=== PATIENT | female | born 1970 | race Caucasian/White ===

== ENCOUNTER 2024-05-05 14:53 | Emergency (ER) | payer OTHER, SELFPAY ==
[2024-05-05 15:02] VITALS: PULSE 102; O2SAT 98
[2024-05-05 15:03] VITALS: BP 111/67; PULSE 112; RESP 18; TEMP 36.8; O2SAT 98
[2024-05-05 15:10] VITALS: BP 111/67; PULSE 112; RESP 18; TEMP 36.8; O2SAT 98; BMI 20.7
[2024-05-05 15:34] LABS: Glucose, Whole Blood 295 mg/dL (60-115)
--- NOTE | 2024-05-05 15:42 | ED_ITS ---
HPI - General Adult General Chief complaint: Psychiatric Symptoms Stated complaint: DKA Time Seen by Provider: 05/05/24 15:23 Source: patient Mode of arrival: ambulatory Limitations: no limitations History of Present Illness ED Provider: Dr. Vale Victoria HPI narrative: Patient comes to the emergency room via ambulance from [facility]. According to Lana Laughlin, patient was acting strange and her blood sugar was 330 therefore they sent her to the emergency room for further evaluation. According to the staff, patient is not compliant with her medications. Patient denies taking any medications for her glucose. Patient states that she is aware that they are elevated but likes to keep it between 300-400. Patient denies blurry vision, no headaches, no polyuria or polydipsia. Related Data Home Medications ?Medication ?Instructions ?Recorded ?Confirmed No Known Home Meds 05/05/24 05/05/24 Allergies Allergy/AdvReac Type Severity Reaction Status Date / Time oxycodone Allergy Unknown Verified 05/05/24 18:21 quetiapine [From Seroquel] Allergy Unknown Verified 05/05/24 18:21 risperidone Allergy Unknown Verified 05/05/24 18:21 insulin Allergy Unknown Uncoded 05/05/24 18:21 Review of Systems 2 Review of Systems: Constitutional : No Weight loss, No Fever, No Chills, No Night Sweats, No Fatigue, No Malaise ENT/Mouth : No Hearing loss, No Ear Pain, No Nasal Congestion, No Sinus Pain, No Hoarseness, No sore throat, No Rhinorrhea, No Swallowing Difficulty Eyes: No Eye Pain, No Swelling, No Redness, No Foreign Body, No Discharge, No Vision Changes Cardiovascular : No Chest Pain, No SOB, No Dyspnea on Exertion, No Orthopnea, No Edema, No Palpitations Respiratory : No Cough, No Sputum, No Wheezing, No Smoke Exposure, No Dyspnea Gastrointestinal : No Nausea, No Vomiting, No Diarrhea, No Constipation, No abdominal Pain, No Hematochezia, No Melena Genitourinary : no irregular bleeding, No Dysuria, No Urinary Frequency, No Hematuria, No Urinary Incontinence, No Urgency, No Flank Pain, No Urinary Flow Changes, No Hesitancy Musculoskeletal : No joint pain, No Myalgias, No Joint Swelling Skin : No Skin Lesions, No rash Neuro : No Weakness, No Numbness, No Paresthesias, No Loss of Consciousness, No Dizziness, No Headache Psych : No Anxiety/Panic, No Depression, No SI/HI/AH/VH, No Social Issues, Heme/Lymph: No Bruising, No Bleeding,No Lymphadenopathy Endocrine : No Polyuria, No Polydipsia, No Temperature Intolerance [facility] Past Medical History Medical History (Updated 05/05/24 @ 20:00 by Vale Victoria MD) Schizoaffective disorder Type 2 diabetes mellitus Social History Social History Smoked in Last 30 Days: No Use of substances other than those prescribed or required for medical reasons: No Advance Directives: No Advance Directives Information Provided: No Physical Exam ED Vital Signs: Vital Signs - 24 hr 05/05/24 15:03 05/05/24 15:10 05/05/24 18:00 Temperature 98.3 F 98.3 F 98.1 F Pulse Rate 112 H 112 H 112 H Respiratory Rate 18 18 16 Blood Pressure 111/67 111/67 137/85 Pulse Oximetry 98 98 98 Oxygen Delivery Method Room Air Room Air Room Air BMI result Body Mass Index 20.7 Const Other: Appearance: Alert. Oriented X3. No acute distress. Eyes: Pupils equal, round and reactive to light. ENT: Pharynx normal. Neck: Normal inspection. Neck supple. No lymph nodes noted. No crepitus CVS: Normal heart rate and rhythm. Pulses normal. Normal S1 and S2 Respiratory: No respiratory distress. Breath sounds normal. No Wheezing. No rales Abdomen: Soft and nontender. No rigidity. No distention. Skin: Skin warm and dry. Normal skin color. Normal skin turgor. Extremities: No lower extremity edema. No Lacerations. No Rash Neuro: Oriented X 3. No motor deficit. No sensory deficit. Moving all extremities. No slurred speech. CN 2 through 12 grossly intact Psych: calm, cooperative, preoccupied with yazidism beliefs. Course Course Course Narrative: -patient's labs pending. Medications Administered Discontinued Medications Generic Name Dose Route Start Last Admin Trade Name Freq PRN Reason Stop Dose Admin Sodium Chloride 1,000 mls @ 999 mls/hr 05/05/24 17:31 05/05/24 19:38 Ns IVCONT 05/05/24 18:31 Infused .Q1H1M ONE Infusion Insulin Human Regular 5 unit 05/05/24 17:31 05/05/24 18:02 Insulin Regular, Human 100 Unit/Ml 10 Ml Vial IVPUSH 05/05/24 17:32 5 unit ONCE ONE Administration My interpretation of labs, normal hematology, chemistry shows a glucose of 338. Beta hydroxybutyrate 0.9 Medical Decision Making Medical Decision Making [facility] Narrative: My interpretation of labs: Patient's hematology and chemistry within normal limits, glucose 338. -patient was giving IV fluids, 5 units of insulin, patient's glucose improved to 104, patient asymptomatic. -on April 14, patient was prescribed Januvia 100 mg, metformin 1000 mg b.i.d. and glimepiride 4 mg, to be continued as prescribed Differential Diagnosis Differential Diagnoses: The differential diagnosis associated with the presentation includes (Hyperglycemia, medication noncompliance) Lab Data [facility] Lab Attestation statement: I reviewed the patient's lab results. 05/05/24 15:52 05/05/24 15:52 Labs: Lab Results 05/05/24 05/05/24 05/05/24 Range/Units 15:05 15:52 17:18 WBC 7.8 (4.8-10.8) X10*3/uL RBC 5.26 (4.20-5.50) X10*6/uL Hgb 15.1 (12.0-16.0) g/dl Hct 41.9 (37.0-47.0) % MCV 79.7 L (80.0-98.0) fL MCH 28.7 (27.0-33.0) pg MCHC 36.0 H (31.0-35.0) g/dl RDW 12.2 (11.0-16.0) % Plt Count 257 (160-400) X10*3/uL MPV 11.2 (9.4-12.3) fL Immature Gran % (Auto) 0.3 (0.0-0.4) % Neut % (Auto) 63.2 (45-73) % Lymph % (Auto) 30.2 (20-40) % [place] % (Auto) 5.4 (2-11) % Eos % (Auto) 0.5 (0-4) % Baso % (Auto) 0.4 (0-2) % Lymph # (Auto) 2.4 (1.2-4.9) X10*3/uL [place] # (Auto) 0.4 (0.1-1.2) X10*3/uL Eos # (Auto) 0.0 (0.0-0.4) X10*3/uL Baso # (Auto) 0.0 (0.0-0.2) X10*3/uL Abs Immat Gran (auto) 0.02 (0.00-0.03) X10*3/uL Absolute Neuts (auto) 4.9 (2.0-8.3) x10*3/uL Absolute Nucleated RBC 0.000 (0.0-0.012) X10*3/uL Nucleated RBC % (auto) 0.0 (0.0-0.2) /100WBC Sodium 139 (135-145) mmol/L Potassium 4.1 (3.3-5.1) mmol/L Chloride 103 (96-108) mmol/L Carbon Dioxide 25 (22-29) mmol/L Anion Gap 15 (12-20) BUN 11 (9-16) mg/dL Creatinine 0.94 (0.5-1.4) mg/dL Estim Creat Clear Calc 68.5 Estimated GFR > 60 POC Glucose 295 H 300 H (60-115) mg/dL Random Glucose 338 H (60-115) mg/dL Calcium 9.8 (8.4-10.2) mg/dL Total Bilirubin 0.6 (0.0-1.0) mg/dL Direct Bilirubin 0.2 (0.0-0.5) mg/dL AST 15 (5-31) U/L ALT 17 (0-31) U/L Alkaline Phosphatase 64 (39-117) U/L Total Protein 7.0 (6.5-8.0) g/dL Albumin 3.9 (3.5-5.0) g/dL Beta-Hydroxybutyrate 0.90 H (0.02-0.27) mmol/L 05/05/24 Range/Units 19:36 WBC (4.8-10.8) X10*3/uL RBC (4.20-5.50) X10*6/uL Hgb (12.0-16.0) g/dl Hct (37.0-47.0) % MCV (80.0-98.0) fL MCH (27.0-33.0) pg MCHC (31.0-35.0) g/dl RDW (11.0-16.0) % Plt Count (160-400) X10*3/uL MPV (9.4-12.3) fL Immature Gran % (Auto) (0.0-0.4) % Neut % (Auto) (45-73) % Lymph % (Auto) (20-40) % [place] % (Auto) (2-11) % Eos % (Auto) (0-4) % Baso % (Auto) (0-2) % Lymph # (Auto) (1.2-4.9) X10*3/uL [place] # (Auto) (0.1-1.2) X10*3/uL Eos # (Auto) (0.0-0.4) X10*3/uL Baso # (Auto) (0.0-0.2) X10*3/uL Abs Immat Gran (auto) (0.00-0.03) X10*3/uL Absolute Neuts (auto) (2.0-8.3) x10*3/uL Absolute Nucleated RBC (0.0-0.012) X10*3/uL Nucleated RBC % (auto) (0.0-0.2) /100WBC Sodium (135-145) mmol/L Potassium (3.3-5.1) mmol/L Chloride (96-108) mmol/L Carbon Dioxide (22-29) mmol/L Anion Gap (12-20) BUN (9-16) mg/dL Creatinine (0.5-1.4) mg/dL Estim Creat Clear Calc Estimated GFR POC Glucose 104 (60-115) mg/dL Random Glucose (60-115) mg/dL Calcium (8.4-10.2) mg/dL Total Bilirubin (0.0-1.0) mg/dL Direct Bilirubin (0.0-0.5) mg/dL AST (5-31) U/L ALT (0-31) U/L Alkaline Phosphatase (39-117) U/L Total Protein (6.5-8.0) g/dL Albumin (3.5-5.0) g/dL Beta-Hydroxybutyrate (0.02-0.27) mmol/L Critical Care Time Critical Care Time Critical Care Time: Yes Total Critical Care Time: 60 Attestation: I have personally provided critical care time. Time includes review of lab data, radiology results, discussion with consultants, and monitoring for potential decompensation. Intervention performed as documented. Discharge Plan Discharge Clinical Impression: Hyperglycemia Patient Disposition: Xfer Other Transfer Details: [facility] [place] Prescriptions: No Action No Known Home Meds Print Language: Lao
[2024-05-05 15:57] LABS: Basophils Percent Auto 0.4 % (0-2); Eosinophils Percent Auto 0.5 % (0-4); Hematocrit 41.9 % (37.0-47.0); Hemoglobin 15.1 g/dl (12.0-16.0); Imm Gran Abs Auto 0.02 X10*3/uL (0.00-0.03); Imm Gran Pct Auto 0.3 % (0.0-0.4); Lymphocytes Absolute Auto 2.4 X10*3/uL (1.2-4.9); Lymphocytes Percent Auto 30.2 % (20-40); MANUAL DIFF FLAG NO; Mean Corpuscular Hemoglobin 28.7 pg (27.0-33.0); Mean Corpuscular Volume 79.7 fL (80.0-98.0); Mean Platelet Volume 11.2 fL (9.4-12.3); Monocytes Absolute Auto 0.4 X10*3/uL (0.1-1.2); Monocytes Percent Auto 5.4 % (2-11); Neutrophils Absolute Auto 4.9 x10*3/uL (2.0-8.3); Neutrophils Percent Auto 63.2 % (45-73); Platelet Count 257 X10*3/uL (160-400); Red Blood Count 5.26 X10*6/uL (4.20-5.50); Red Cell Distribution Width 12.2 % (11.0-16.0); White Blood Count 7.8 X10*3/uL (4.8-10.8)
--- NOTE | 2024-05-05 15:57 | PC.NURSE ---
Pt comes to ED today from [facility] for concerns of AMS and hyperglycemia. Pt is A&Ox3, VSS, and hyper-verbal Denies pain, n/v, EASON Pt states she her usual BS are between 300-400 at baseline. 1:1 sitter present. ED provider at bedside for eval--awaiting orders.
[2024-05-05 16:19] LABS: Alanine Aminotransferase 17 U/L (0-31); Albumin Level 3.9 g/dL (3.5-5.0); Anion Gap 15 (12-20); Aspartate Amino Transferase 15 U/L (5-31); Bilirubin Direct 0.2 mg/dL (0.0-0.5); Bilirubin Total 0.6 mg/dL (0.0-1.0); Blood Urea Nitrogen 11 mg/dL (9-16); Calcium 9.8 mg/dL (8.4-10.2); Carbon Dioxide 25 mmol/L (22-29); Chloride 103 mmol/L (96-108); Creatinine Clr Calc Pharmacy 68.5; Estimated Glomerular Filt Rate > 60; Glucose Random 338 mg/dL (60-115); Potassium 4.1 mmol/L (3.3-5.1); Sodium 139 mmol/L (135-145)
[2024-05-05 16:30] LABS: Alkaline Phosphatase 64 U/L (39-117)
[2024-05-05 17:23] LABS: Glucose, Whole Blood 300 mg/dL (60-115)
[2024-05-05] MEDS: 0.9 % Sodium Chloride 1,000 ML 999 ML IVCONT (17:55)
[2024-05-05 18:00] VITALS: BP 137/85; PULSE 112; RESP 16; TEMP 36.7; O2SAT 98
[2024-05-05] MEDS: Insulin Regular, Human 100 UNIT/ML 10 ML VIAL IVPUSH (18:02)
--- NOTE | 2024-05-05 18:05 | PC.NURSE ---
Pts BS noted to be elevated at 300. Dr. Victoria orders IVF and IV insulin. When discussing findings with Pt, she initially refuses care and demands food/milk. Pt advised that this would be contraindicated gien her BS level and that IVF and insulin are required to regulate BS. Pt continues to refuse care. Dr. Victoria made aware and plan for D/C due to refusal. When Pt informed that since she is refusing care she will be discharged she becomes agitates and accuses this RN of threatening her physically. This RN made it clear that notifying her of d/c is not a physical threat and that she cannot remain in the ER if she is not going to receive any treatment. Pt then states she will agree to treatment under duress. It was explained to Pt that she can refuse treatment and when asked if she would like IVF and insulin she states yes and when asked if she is going to cooperate she states yes. This RN later return to Pt room for IV pro Security present in room for IV catheter placement. During this procedure, Pt continuously describes this RN to the security staff as threatening and states that this RN enjoys inflicting pain upon others. Pt willingly offers RAC for IV access and does not object in any manner to procedure. As this RN inserted IV needle Pt shouts and jerks her RUE. IV needle remains inserted and Pt was reminded to stay still. Pt then states to this RN, go ahead you already hurt me. Pt is complaint with remainder of IV placement. Pt verbally acknowledges and agrees to the start of IVF JOE Yin present for IV insulin administration. This RN verbally explains dosage and type of insulin to Pt and Pt gives verbal acknowledgement and agreement to medication admiration. IV insulin administered without incident. Of note, mohsen Watson present for this entire encounter. Plan to recheck POC after IVF are administered. Per Dr. Victoria will d/c if regulated.
--- NOTE | 2024-05-05 19:03 | PC.NURSE ---
RN shift report given to JOE Villarreal. Care of Pt relinquished to JOE Villarreal.
[2024-05-05 19:40] LABS: Glucose, Whole Blood 104 mg/dL (60-115)
--- NOTE | 2024-05-05 20:09 | PC.NURSE ---
MD aware of POC. per MD pt to be d/c. ed corporation secretary aware of need for ems transfer to facility. pt requests food, given per ok. sitter at bedside.
[2024-05-05 20:38] VITALS: BP 131/85; PULSE 108; RESP 16; TEMP 36.9; O2SAT 98
[2024-05-05 20:52] VITALS: BP 131/85; PULSE 108; RESP 16; TEMP 36.9; O2SAT 98
== END 2024-05-05 20:59 | disposition other institution (70) ==
PROVIDERS: Emergency Provider Emergency Medicine
DX: E11.65 Type 2 diabetes mellitus with hyperglycemia (principal); Z79.4 Long term (current) use of insulin
CPT/HCPCS: 36415; 80048; 80076; 82010; 82947; 85025; 96361; 96374; 99285

== ENCOUNTER 2024-05-15 18:16 | Emergency (ER) | payer OTHER, SELFPAY ==
--- NOTE | 2024-05-15 | ECG_ITS ---
Test Reason : NAUSEA/VOMITING Blood Pressure : / mmHG Vent. Rate : 080 BPM Atrial Rate : 080 BPM P-R Int : 132 ms QRS Dur : 086 ms QT Int : 342 ms P-R-T Axes : 061 061 052 degrees QTc Int : 394 ms Normal sinus rhythm Minimal voltage criteria for LVH, may be normal variant ( Sokolow-Frias ) Borderline ECG No previous ECGs available Referred By: Generic ED Physician Electronically Signed By:Rinku Tyson
--- NOTE | ~2024-05-15 | XR_ITS ---
EXAMINATION: XR CHEST CLINICAL INFORMATION: sob COMPARISON: None available. TECHNIQUE: Frontal view of the chest was obtained. FINDINGS: No significant abnormality is noted involving the heart, lungs, mediastinum, bony thorax or soft tissues. XR/XR chest 1V IMPRESSION: Unremarkable examination. Electronically signed by: Jorge Crow MD 05/15/2024 07:55 PM [facility]
[2024-05-15 18:24] VITALS: BP 106/72; BP 130/78; PULSE 105; PULSE 112; RESP 20; TEMP 36.5; O2SAT 97; BMI 20.8
[2024-05-15 19:24] VITALS: BP 195/84; PULSE 95; RESP 18; TEMP 36.8; O2SAT 99
--- NOTE | 2024-05-15 19:39 | PC.NURSE ---
this rn assumed care of pt, pt reporting increased nausea and vomiting. pt noted to be from [facility] on a [facility]. pt noted to not have sitter in place, supercharger mechanic aware, sitter placed on pt at this time.
[2024-05-15 20:37] LABS: Basophils Percent Auto 0.5 % (0-2); Eosinophils Absolute Auto 0.1 X10*3/uL (0.0-0.4); Eosinophils Percent Auto 1.8 % (0-4); Hemoglobin 13.6 g/dl (12.0-16.0); Imm Gran Abs Auto 0.01 X10*3/uL (0.00-0.03); Imm Gran Pct Auto 0.2 % (0.0-0.4); Lymphocytes Absolute Auto 2.6 X10*3/uL (1.2-4.9); Lymphocytes Percent Auto 39.6 % (20-40); MANUAL DIFF FLAG NO; Mean Corpuscular HGB Conc 35.8 g/dl (31.0-35.0); Mean Platelet Volume 11.3 fL (9.4-12.3); Monocytes Absolute Auto 0.4 X10*3/uL (0.1-1.2); Monocytes Percent Auto 6.5 % (2-11); Neutrophils Absolute Auto 3.4 x10*3/uL (2.0-8.3); Neutrophils Percent Auto 51.4 % (45-73); Platelet Count 240 X10*3/uL (160-400); Red Blood Count 4.69 X10*6/uL (4.20-5.50); Red Cell Distribution Width 12.3 % (11.0-16.0); White Blood Count 6.7 X10*3/uL (4.8-10.8)
[2024-05-15 20:52] LABS: Alanine Aminotransferase 20 U/L (0-31); Albumin Level 3.9 g/dL (3.5-5.0); Alkaline Phosphatase 46 U/L (39-117); Anion Gap 13 (12-20); Aspartate Amino Transferase 17 U/L (5-31); Bilirubin Total 0.2 mg/dL (0.0-1.0); Blood Urea Nitrogen 18 mg/dL (9-16); Calcium 9.8 mg/dL (8.4-10.2); Carbon Dioxide 29 mmol/L (22-29); Chloride 103 mmol/L (96-108); Estimated Glomerular Filt Rate > 60; Glucose Random 164 mg/dL (60-115); Lipase 25 U/L (8-78); Potassium 4.2 mmol/L (3.3-5.1); Sodium 141 mmol/L (135-145)
--- NOTE | 2024-05-15 21:27 | ED_ITS ---
HPI - URI/Sore Throat General Chief Complaint: Upper Respiratory Symptoms Stated Complaint: Cough coming from [facility] Time Seen by Provider: 05/15/24 21:18 Source: patient Mode of arrival: ambulatory Limitations: no limitations History of Present Illness ED Provider: HPI Narrative: Patient from [facility] with history of schizoaffective disorder comes here for nonspecific complaints feeling weak cough for last 2 years with multiple complaints patient is diabetic Related Data Home Medications ?Medication ?Instructions ?Recorded ?Confirmed No Known Home Meds 05/05/24 05/05/24 Allergies Allergy/AdvReac Type Severity Reaction Status Date / Time oxycodone Allergy Unknown Verified 05/15/24 18:28 quetiapine [From Seroquel] Allergy Unknown Verified 05/15/24 18:28 risperidone Allergy Unknown Verified 05/15/24 18:28 Review of Systems 2 Review of Systems: Yes all other systems are reviewed and are negative PMFSH Past Medical History Medical History Schizoaffective disorder Type 2 diabetes mellitus Social History Social History Advance Directives: Yes Advance Directives Information Provided: No Advance Directives on File: No Do you have a plan to hurt others: No Plan Physical Exam 2 Vital Signs: Vital Signs: Last Vital Signs Temp 98.2 F 05/15/24 19:24 Pulse 95 05/15/24 19:24 Resp 18 05/15/24 19:24 BP 195/84 H 05/15/24 19:24 Pulse Ox 99 05/15/24 19:24 O2 Del Method Room Air 05/15/24 19:24 BMI result Body Mass Index 20.8 Appearance: Alert. Oriented X3. No acute distress. Eyes: PERRLA, No Nystagmus ENT: Pharynx normal. Oral Mucosa moist Neck: Normal inspection. Neck supple. CVS: Normal heart rate and rhythm. Pulses normal. Respiratory: No respiratory distress. Equal air entry bilateral, no wheezing/rales/rhonchi Abdomen: Soft and nontender. Bowel sounds are present, no mass palpable, no CVA tenderness Skin: Skin warm and dry. Normal skin color. Normal skin turgor. Extremities: No lower extremity edema. No calf tenderness Neuro: Oriented X 3. No motor deficit. No sensory deficit.No cerebellar signs , cranial nerves II-XII intact Medical Decision Making Medical Decision Making [facility] Narrative: Patient with nonspecific complaints workup is negative will send back to [facility] Lab Data [facility] Lab Attestation statement: I reviewed the patient's lab results. 05/15/24 20:32 05/15/24 20:32 Labs: Lab Results 05/15/24 Range/Units 20:32 WBC 6.7 (4.8-10.8) X10*3/uL RBC 4.69 (4.20-5.50) X10*6/uL Hgb 13.6 (12.0-16.0) g/dl Hct 38.0 (37.0-47.0) % MCV 81.0 (80.0-98.0) fL MCH 29.0 (27.0-33.0) pg MCHC 35.8 H (31.0-35.0) g/dl RDW 12.3 (11.0-16.0) % Plt Count 240 (160-400) X10*3/uL MPV 11.3 (9.4-12.3) fL Immature Gran % (Auto) 0.2 (0.0-0.4) % Neut % (Auto) 51.4 (45-73) % Lymph % (Auto) 39.6 (20-40) % [place] % (Auto) 6.5 (2-11) % Eos % (Auto) 1.8 (0-4) % Baso % (Auto) 0.5 (0-2) % Lymph # (Auto) 2.6 (1.2-4.9) X10*3/uL [place] # (Auto) 0.4 (0.1-1.2) X10*3/uL Eos # (Auto) 0.1 (0.0-0.4) X10*3/uL Baso # (Auto) 0.0 (0.0-0.2) X10*3/uL Abs Immat Gran (auto) 0.01 (0.00-0.03) X10*3/uL Absolute Neuts (auto) 3.4 (2.0-8.3) x10*3/uL Absolute Nucleated RBC 0.000 (0.0-0.012) X10*3/uL Nucleated RBC % (auto) 0.0 (0.0-0.2) /100WBC Sodium 141 (135-145) mmol/L Potassium 4.2 (3.3-5.1) mmol/L Chloride 103 (96-108) mmol/L Carbon Dioxide 29 (22-29) mmol/L Anion Gap 13 (12-20) BUN 18 H (9-16) mg/dL Creatinine 0.83 (0.5-1.4) mg/dL Estim Creat Clear Calc 76.0 Estimated GFR > 60 Random Glucose 164 H (60-115) mg/dL Calcium 9.8 (8.4-10.2) mg/dL Total Bilirubin 0.2 (0.0-1.0) mg/dL AST 17 (5-31) U/L ALT 20 (0-31) U/L Alkaline Phosphatase 46 (39-117) U/L Total Protein 7.0 (6.5-8.0) g/dL Albumin 3.9 (3.5-5.0) g/dL Lipase 25 (8-78) U/L Influenza Type A (PCR) NEGATIVE (Negative) Influenza Type B (PCR) NEGATIVE (Negative) RSV RNA Qual (PCR) NEGATIVE (Negative) SARS-CoV-2 RNA (RT-PCR) NEGATIVE (Negative) Independent Interpretation I performed an independent interpretation of an: Plain X-Ray Interpretation: NAD Radiology Impression Discussion of test interpretation with radiology: I have reviewed the radiologist's reading. Discharge Plan Discharge Clinical Impression: Upper respiratory infection Patient Disposition: Home, Self-Care Instructions: Upper Respiratory Infection (ED) Additional Instructions: Your blood workup was normal Your COVID flu RSV negative Chest x-ray also negative Follow with your PCP if any concerns Prescriptions: No Action No Known Home Meds Print Language: Chinese
[2024-05-15 21:46] LABS: Influenza A PCR NEGATIVE (Negative); Influenza B PCR NEGATIVE (Negative); Resp Syncy Virus RNA Qual PCR NEGATIVE (Negative); SARS COV2 PCR INHOUSE NEGATIVE (Negative)
--- NOTE | 2024-05-15 21:58 | PC.NURSE ---
pt appears to be sleeping, pt denies any complaints at this time, no nausea and vomiting noted. 1:1 sitter at bedside.
--- NOTE | 2024-05-15 22:37 | PC.NURSE ---
report given to Colette DIAZ at [facility].
--- NOTE | 2024-05-15 23:25 | PC.NURSE ---
EMS at bedside to transport pt back to [facility] at this time. security at bedside.
[2024-05-15 23:30] VITALS: BP 195/84; PULSE 95; RESP 18; TEMP 36.8; O2SAT 99
--- OUTSIDE RECORDS SUMMARY | 2024-05-19 11:53 | XMS_ITS | Data Portability ---
Author Organization [facility], svmg_admin Address [address] [place] [phone] Care Team Providers Care Piece Meat Trimmer Name Role Phone FAUSTO BLAKE Senior Quality Assurance Analyst [phone] FRANK ORO Primary Care Provider Assessment No assessment recorded. Plan of Treatment Reminders Order Date Submit Date Provider Last Modified By Organization Details Last Modified Time Details Appointments None recorded . Lab glucose, fingerst ick, blood 2020 021 [facility] Physician [facility], [address] [place] [address], [id number], 14:57:11 hemoglob in A1C, fingerst ick 2020 021 [facility], [address] [place] [address], [address], 08:05:45 glucose, fingerst ick, blood 2020 021 [facility], [address] [place] [address], [id number], 11:04:03 Referral None recorded . Procedures None recorded . Surgeries None recorded . Imaging None recorded . Medication Orders None recorded . Patient TargetsNo targets recorded. Patient Instructions Encounter Date Encounter Id Patient Instructions Last Modified By Organization Details Last Modified Time 12/27/2020 [id number] type 2 diabetes: care instructions twyla Not available 12/27/2020 14:24:07 01/29/2021 [id number] type 2 diabetes: care instructions [email or web address] Not available 01/29/2021 14:57:11 learning about type 2 diabetes [email or web address] Not available 01/29/2021 14:57:11 04/05/2021 [id number] type 2 diabetes: care instructions [email or web address] Not available 04/05/2021 16:28:16 learning about type 2 diabetes [email or web address] Not available 04/05/2021 16:28:15 Reason for Referral None Reported. Results Created Date Observation Date Name Description Value Unit Range Abnormal Flag Note LastModifiedBy Organization Detail LastModifiedTime 01/30/20 21 01/29/2021 gluco se, finge rstic k, blood Glucose, Fingerstick 274 Not Available [address], [address], 01/29/2021 13:37:57 04/11/20 21 04/11/2021 hemog lobin A1C, finge rstic k Hemoglobin A1c 10.5% Not Available [address], [address], 04/05/2021 13:19:36 Result Notes None recorded. Problems Name Problem SNOMED Code Status Onset Date Resolution Date Notes Provider Name and Address Organization Details Recorded Time Chest pain 83321434 Active Not Available [facility] 05/08/2013 03:02:21 Problem Notes None recorded. Procedures Surgical History Date Name Laterality Status Provider Name and Address Organization Details Recorded Time Tooth root removal completed Alfred Carolina [facility] 12/27/2020 13:01:58 Other Surgeries completed Di Ordonez [facility] 04/05/2021 13:18:13 Imaging Results None recorded. Procedure Notes None recorded. Medical Equipment None Reported. Allergies Allergen ID Allergen Name Allergen Category Reaction Reaction Severity Criticality Documentation Date Start Date Code Code System Note Provider Name and Address Organization Details Recorded Time [id number] oxycodone medicatio n Not available Not available Not available 12/27/2020 7804 RxNorm Di Ordonez [facility] 13:17:37 283146 Seroquel medicatio n other severe Not available 12/27/2020 72764 [facility] 12:59:20 135439 cigarette smoke environme nt Not available Not available Not available 04/05/2021 Di augustine [facility] 13:17:37 [id number] Levemir medicatio n Not available Not available Not available 04/05/2021 46462 0 [facility] 13:23:49 Medications Name Sig Start Date Stop Date Status Note LastModified by Organization Details LastModified Time multivitamin tablet active Not Available Not Available Not Available divalproex 250 mg tablet,delay ed release active Not Available Not Available N ot Available FreeStyle Lancets 28 gauge active Not Available Not Available Not Available amoxicillin 500 mg tablet 04/05 completed Not Available Not Available Not Available glimepiride 2 mg tablet Take 1 tablet every day by oral route. active Not Available Not Available No t Available metformin 1,000 mg tablet active Not Available Not Available Not Available glimepiride 4 mg tablet 04/05 completed Not Available Not Available Not Available divalproex 125 mg tablet,delay ed release active Not Available Not Available N ot Available ibuprofen 600 mg tablet 04/05 completed Not Available Not Available Not Available diazepam 5 mg tablet 04/05 completed Not Available Not Available Not Available aripiprazole 30 mg tablet Take 1 tablet every day by oral route. active Not Available Not Available No t Available chlorhexidin e gluconate 0.12 % mouthwash active Not Available Not Available No t Available Depakote 250mg 1 morning and one at night active Not Available Not Available No t Available metformin 1000mg twice daily active Not Available Not Available No t Available Januvia 100 mg tablet active Not Available Not Available No t Available Januvia 100mg daily active Not Available Not Available No t Available FreeStyle Lite Strips active Not Available Not Available Not Available FreeStyle Krebs Lite kit active Not Available Not Available Not Available Multi Vitamin active Not Available Not Available Not Available Tab-A-Beryl 400 mcg tablet 04/05 completed Not Available Not Available Not Available Vitals Date Recorded Body height Body mass index (BMI) Body weight Body temperature Heart rate Oxygen saturation Oxygen saturation in Arterial blood by Pulse oximetry Systolic blood pressure Diastolic blood pressure Provider Name and Address Organization Details Last Updated DateTime 1 197.1 cm 24.3 kg/m2 97454.0 1 g 97.8 [degF] 86 /min 99 % 99 % 126 mm[Hg] 78 mm[Hg] Alfred [facility] 1 12:57:22 Date Recorded Body height Body mass index (BMI) Body weight Body temperature Heart rate Oxygen saturation Oxygen saturation in Arterial blood by Pulse oximetry Systolic blood pressure Diastolic blood pressure Provider Name and Address Organization Details Last Updated DateTime 1 197.1 cm 24.2 kg/m2 87993.4 2 g 97.3 [degF] 90 /min 99 % 99 % 109 mm[Hg] 75 mm[Hg] Alfred [facility] 1 13:33:07 Date Recorded Body height Body mass index (BMI) Body weight Body temperature Oxygen saturation Oxygen saturation in Arterial blood by Pulse oximetry Heart rate Systolic blood pressure Diastolic blood pressure Provider Name and Address Organization Details Last Updated DateTime 1 197.1 cm 24.1 kg/m2 34564.0 3 g 96.8 [degF] 97 % 97 % 85 /min 111 mm[Hg] 68 mm[Hg] Dieduin Ordonez [facility] 1 13:28:49 Social History Question Answer Notes LastModified by Organizat ion Details LastModified Time How Much Tobacco Do You Chew? None Information not available 12/27/2020 Does The Patient Have Fever OR Cough OR Shortness Of Breath? No Information not available 12/27/2020 In The Last 14 Days, Has The Patient Had Contact With A COVID-19 Positive Patient Or A COVID-19 Suspect Patient Awaiting Test Results? No Information not available 12/27/2020 If Pulse Oximetry Was Done: Is The Patient's Sp02 Less Than 93% On Room Air? No Information not available 12/27/2020 Does The Patient Have At Least TWO Of These Symptoms? Diarrhea, Chills, Muscle Pain, Repeated Shaking & Chills, Headache, Sore Throat, Or New Loss Of Taste/Smell No Information not available 12/27/2020 What Is Your Relationship Status? Single [email or web address] Information not available 04/05/2021 Sex: Unknown Functional Status None recorded. Mental Status None recorded. Family History Relationship Description Onset Age of this Age Resolved Age Notes LastModified by Organization Details LastModified Time Mother Family history of malignant neoplasm [email or web address] Not available 04/05 13:17:27 Unspecified Relation Family history of malignant neoplasm [email or web address] Not available 04/05 13:17:27 Medical History Condition Response Diabetes (Non-Insulin Dependent) Y Overweight/Obesity Y Asthma Y Gynecological HistoryNo gynecological history recorded. Obstetrics History GPAL:G 0 P 0 0 0 0 Past Encounters Encounter ID Performer Location Encounter Start Date Encounter Closed Date Diagnosis/Indication Diagnosis SNOMED-CT Code Diagnosis ICD10 Code [id number] [facility] - ER [address] [place] [phone] 04/17/2008 00:00:00 04/01/2011 03:36:15 [id number] Fausto Blake MD [facility]Endo crinology [address] [place] [phone] 12/27/2020 12:32:52 12/27/2020 14:07:01 Uncontrolled type 2 diabetes mellitus 366351539 E11.65 Fatigue 80581406 R53.83 [id number] Fausto Blake MD [facility] [address] [place] [phone] 01/29/2021 13:21:58 01/29/2021 14:12:17 Uncontrolled type 2 diabetes mellitus 139221316 E11.65 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 3600555249 03 E78.2 [id number] Fausto Blake MD [facility] [address] [place] [phone] 04/05/2021 13:06:37 04/05/2021 14:14:38 Uncontrolled type 2 diabetes mellitus 979674146 E11.65 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 5368348575 03 E78.2 Health Concerns Section Related Observation LastModified by Organization Detai ls LastModified Time None Recorded Concern Status LastModified by Organization Details LastModified Time None Recorded Advance Directives Directive None Recorded Payers Encounter Date Sequence Insurance Name Policy Number Policy Ellison Covered Member ID Ellison Member ID Guarantor Name 12/27/2020 1 [facility] - DOS PRIOR TO 2022 - DUAL ELIGIBLE (MEDICARE REPLACEMENT/AD VANTAGE - HMO) [place] [id number] [place] 01/29/2021 1 [facility] - DOS PRIOR TO 2022 - DUAL ELIGIBLE (MEDICARE REPLACEMENT/AD VANTAGE - HMO) [facility] [id number] 04/05/2021 1 [facility] - DOS PRIOR TO 2022 - DUAL ELIGIBLE (MEDICARE REPLACEMENT/AD VANTAGE - HMO) [place] [id number] [place] Notes Date Note Type Note Provider Name and Address Organization Details Recorded Time 12/27/2020 text/html 50 yo F patient with PMH of schizophrenia, Type 2 DM arrives for {{initial# initial/fol low up}} consultation for hypothyroidismC/o of feeling tired, constipated, hair loss, cold intolerance. - thinks it is fibroids vs thyroid. TSH was 0.50 checked yesterday. On review of records, pt has never had an abnormal TSH.Was previously seeing Dr. Gabriel for DM, who retired about 1 year ago. As per pt, her mental health disorder is under control. Diabetes history: She was diagnosed with Type 2 DM several years ago {{Initially presented with polyuria and polydipsia Diagnosed by labs*}} {{No Yes*}} prior episodes of DKA or hospitalizations for diabetes. Family history notable for diabetes- not known. Prior medications used {{metformin sulfonylur eas thiazolidinediones GLP-1 anologs SGLT2i}} Side effects of anti-hyperglycemic medications:{{yes no}} Polyuria, denies nocturia Last KrvF8R2.4% on Current Medications for Diabetes: has beenMTF 1000mg BIDJanuvia 100mg dailyGlimepiride - not sure about dose Compliance with meds: {{most of the time misses insulin many times per week misses oral drugs frequently}} Glucometer download- does not check much Glucose readings: {{1 time per day 2 times per day 3 times per day 4 times per day}} Checking mainly: {{Fasting before meals after meals before meals and bedtime}} Average reading SD SMBG: Fingerstick today in clinic []. 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 applicable*}} Severe hypoglycemia (<54mg/d) {{yes no not applicable*}} Glucagon use: {{yes no not applicable*}} Work schedule: disablity Diet: {{eats poor quality but more quantity # mostly good usually good mostly junk food frequently eats fast food very erratic timings not changed since the last time}} Once a day -Breakfast: skips Lunch: pasta, sandwich, meat Dinner: skips Snacks: not much Drinks: water, milk with chocolate with sugar Weight change: {{no change* decreased incr eased}} Exercise: {{walking# regularly i ntermittently rarely}} Smoking: no Alcohol: no Complications of DM: -Diabetic retinopathy {{yes no*}} Yearly eye examination: {{complaint* non-compl aint}}, last exam- > 1 year ago -Urine microalbumin creatinin e: {{none recently # normal elevated}} most recently, ACEi/ARB {{Yes No*}} Most recent estimated GFR was 68 -Neuropathy symptoms: {{yes no*}}, Follows podiatry {{Yes No}} Control of neuropathy symptoms: {{yes no}} -ASCVD: {{yes no*}} Aspirin use: {{yes no*}} -Hypertension control: Checks blood pressure at home {{yes no*}}, usual readings <130/80 {{yes no}}; Lipid control: Statin use {{yes no*}}, last lipid panel ->LDL {{in target above target not applicable}}, Triglycerides {{in target above target not applicable}}- no recent results Meds for HTN- no Meds for HLD- no Labs: HbA1c Creat/GFR 0.97/68 LFTs: Alb , AST , ALT , Alk phos Lipid panel: Total chol , LDL , HDL , Tg UMACR: {{normal elevated}} FH of thyroid cancer (medullary) or MEN2A or 2B Personal h/o pancreatitis Personal h/o IBD or gastroparesis or reflux disease Labs: 12/27/2020:creat 0.97, BUN 10, GFR 68, Na 135, K 4.4, Cl 101, bicarb 29, calcium 9.7, Alb 4.2Alk phos 56, AST 14, ALT 32, bilirubin T 0.4,TSH 0.55QmW0z 9.4% 08/2017: TSH 1.03, 03/2016: TSH 1.17 Fausto Blake MD [address] [place] [address], [phone], [facility] 12/27/2020 14:25:00 01/29/2021 text/html 50 yo F patient with PMH of schizophrenia, Type 2 DM arrives for {{initial# initial/fol low up}} consultation for hypothyroidismC/o of feeling tired, constipated, hair loss, cold intolerance. - thinks it is fibroids vs thyroid. TSH was 0.50 checked yesterday. On review of records, pt has never had an abnormal TSH.Was previously seeing Dr. Gabriel for DM, who retired about 1 year ago. As per pt, her mental health disorder is under control- sees psychiatrist Cathy Garcia at [facility]. Diabetes history: She was diagnosed with Type 2 DM several years ago {{Initially presented with polyuria and polydipsia Diagnosed by labs*}} {{No Yes*}} prior episodes of DKA or hospitalizations for diabetes. Family history notable for diabetes- not known. Prior medications used {{metformin sulfonylur eas thiazolidinediones GLP-1 anologs SGLT2i}} Side effects of anti-hyperglycemic medications:{{yes no}} Initial visit: 12/27/2020:HbA1c was 10.1%, no records. Counseled on diet and exercise. Check BGs. RTC in 1 month. Today's visit: 01/29/2021: Pt presents for f/u today.Reports energy is doing better. Changed the diet- added brocoli, still drinking coke 12-16oz daily. Added protein- green beans. Drinking whole milk. Did not bring her meter- lowest 191, highest was 231 pre meal. Reports that psychiatrist is changing her psych meds- cut back on the depakote- about 1 week ago. Has nurse coming 3 times a week to help with the meds. Reports good compliance with meds. Last IlyZ9J87.1% on 19.4% on 07/2020 Current Medications for Diabetes: has beenMTF 1000mg BIDJanuvia 100mg dailyGlimepiride 4mg daily Compliance with meds: {{most of the time* misses insulin many times per week misses oral drugs frequently}} Glucometer download- did not bring meter Glucose readings: {{1 time per day 2 times per day 3 times per day 4 times per day}} Checking mainly: {{Fasting before meals after meals before meals and bedtime}} Average reading SD SMBG: Fingerstick today in clinic []. 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*}} Severe hypoglycemia (<54mg/d) {{yes no not applicable*}} Glucagon use: {{yes no not applicable*}} Work schedule: disablity Diet: {{reducing carbs# mostly good usually good mostly junk food frequently eats fast food very erratic timings not changed since the last time}} Once a day -Breakfast: skips Lunch: pasta, sandwich, meat Dinner: skips Snacks: not much Drinks: water, milk with chocolate with sugar Weight change: {{no change* decreased incr eased}} Exercise: {{walking# regularly i ntermittently rarely}} Smoking: no Alcohol: no Complications of DM: -Diabetic retinopathy {{yes no*}} Yearly eye examination: {{complaint* non-compl aint}}, last exam- 07/2019- no DR -Urine microalbumin creatinin e: {{none recently # normal elevated}} most recently, ACEi/ARB {{Yes No*}} Most recent estimated GFR was 91 -Neuropathy symptoms: {{yes no*}}, Follows podiatry {{Yes No}} Control of neuropathy symptoms: {{yes no}} -ASCVD: {{yes no*}} Aspirin use: {{yes no*}} -Hypertension control: Checks blood pressure at home {{yes no*}}, usual readings <130/80 {{yes no}}; Lipid control: Statin use {{yes no*}}, last lipid panel ->LDL {{in target above target* not applicable}}, Triglycerides {{in target above target* not applicable}}- no recent results Meds for HTN- no Meds for HLD- no Labs: 07/06/2020: HbA1c 9.4% Creat/GFR 0.76/91 Lipid panel: Total chol 219(H), LDL 151(H), HDL 38(L), Tg 160(H) UMACR: {{normal* elevated}} LFTs: Alb , AST , ALT , Alk phos FH of thyroid cancer (medullary) or MEN2A or 2B- no Personal h/o pancreatitis- no Personal h/o IBD or gastroparesis or reflux disease Labs: 12/27/2020:creat 0.97, BUN 10, GFR 68, Na 135, K 4.4, Cl 101, bicarb 29, calcium 9.7, Alb 4.2Alk phos 56, AST 14, ALT 32, bilirubin T 0.4,TSH 0.67HgG3i 9.4% 08/2017: TSH 1.03, 03/2016: TSH 1.17 Fausto Blake MD [address] [place] [address], [phone], [facility]. 01/29/2021 14:57:59 04/05/2021 text/html 50 yo F patient with PMH of schizophrenia, Type 2 DM arrives for {{initial# initial/fol low up}} consultation for hypothyroidismC/o of feeling tired, constipated, hair loss, cold intolerance. - thinks it is fibroids vs thyroid. TSH was 0.50 checked yesterday. On review of records, pt has never had an abnormal TSH.Was previously seeing Dr. Gabriel for DM, who retired about 1 year ago. As per pt, her mental health disorder is under control- sees psychiatrist Cathy Garcia at [facility]. Diabetes history: She was diagnosed with Type 2 DM several years ago {{Initially presented with polyuria and polydipsia Diagnosed by labs*}} {{No Yes*}} prior episodes of DKA or hospitalizations for diabetes. Family history notable for diabetes- not known. Prior medications used {{metformin sulfonylur eas thiazolidinediones GLP-1 anologs SGLT2i}} Side effects of anti-hyperglycemic medications:{{yes no}} Initial visit: 12/27/2020:HbA1c was 10.1%, no records. Counseled on diet and exercise. Check BGs. RTC in 1 month.01/29/2021: Discussed adding GLP-1 RA- but pt was very hesitant to make any changes while her psychiatry medications are being modified. C/w MTF 1gm BID, Januvia 100mg daily and glimepiride- pt unsure about dose. Today's visit: 04/05/2021: Pt presents for f/u today.Changed the diet- trying to cut back on carbs. But still drinking coke 12oz daily. Doing more avocado, brocolli, beans, peas. Reports checking some BGs- lowest 160 but also reports 300s which she attributes to her medications. Has an appt with vegetable worker coming up. Does not want to try GLP1RA. Also reports having some LFT elevations in the past that were noted by PCP-I have no records of this. Last RciU0W32.5% on 07/06/2020 10.1% on 19.4% on 07/2020 Current Medications for Diabetes: has beenMTF 1000mg BIDJanuvia 100mg dailyGlimepiride 4mg daily Compliance with meds: {{most of the time* misses insulin many times per week misses oral drugs frequently}} Glucometer download- did not bring meter Glucose readings: {{1 time per day 2 times per day 3 times per day 4 times per day}} Checking mainly: {{Fasting before meals after meals before meals and bedtime}} SMBG: Fingerstick today in clinic []. 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*}} Severe hypoglycemia (<54mg/d) {{yes no not applicable*}} Glucagon use: {{yes no not applicable*}} Work schedule: disablity, is looking for a healthcare proxy Diet: {{reducing carbs# mostly good usually good mostly junk food frequently eats fast food very erratic timings not changed since the last time}} Once a day -Breakfast: skips Lunch: pasta, sandwich, meat Dinner: skips Snacks: not much Drinks: water, sodas, milk with chocolate with sugar Weight change: {{no change* decreased incr eased}} Exercise: {{walking# regularly i ntermittently rarely}} Smoking: no Alcohol: no Complications of DM: -Diabetic retinopathy {{yes no*}} Yearly eye examination: {{complaint* non-compl aint}}, last exam- just had an appt -Urine microalbumin creatinin e: {{none recently # normal elevated}} most recently, ACEi/ARB {{Yes No*}} Most recent estimated GFR was 91 -Neuropathy symptoms: {{yes no*}}, Follows podiatry {{Yes No}} Control of neuropathy symptoms: {{yes no}} -ASCVD: {{yes no*}} Aspirin use: {{yes no*}} -Hypertension control: Checks blood pressure at home {{yes no*}}, usual readings <130/80 {{yes no}}; Lipid control: Statin use {{yes no*}}, last lipid panel ->LDL {{in target above target* not applicable}}, Triglycerides {{in target above target* not applicable}}- no recent results Meds for HTN- no Meds for HLD- no Labs:12/27/2020: creat 0.97, BUN 10, GFR 68, Na 135, K 4.4, Cl 101, bicarb 29, calcium 9.7, Alb 4.2 Alk phos 56, AST 14, ALT 32, bilirubin T 0.4, TSH 0.50, HbA1c 9.4%07/06/2020: Lipid panel: Total chol 219(H), LDL 151(H), HDL 38(L), Tg 160(H) UMACR: {{normal* elevated}} 08/2017: TSH 1.03, 03/2016: TSH 1.17 FH of thyroid cancer (medullary) or MEN2A or 2B- no Personal h/o pancreatitis- no Personal h/o IBD or gastroparesis or reflux disease Fausto Blake MD [address] [place] [address], [phone], [facility] - [facility]. 04/05/2021 16:28:36 OBGyn Episode No OBEpisode recorded.
== END 2024-05-15 23:30 | disposition home or self-care (01) ==
PROVIDERS: Emergency Provider Internal Medicine
DX: J06.9 Acute upper respiratory infection, unspecified (principal); R05.9 Cough, unspecified; Z03.818 Encounter for observation for suspected exposure to other biological agents ruled out; E11.9 Type 2 diabetes mellitus without complications
CPT/HCPCS: 0241U; 71045; 80053; 83690; 85025; 93005; 99283; 99285

== ENCOUNTER → 2024-05-15 19:46 | Outpatient (BNV) | payer OTHER, SELFPAY | PROVIDERS: Emergency Provider Internal Medicine; Visit Provider Internal Medicine Cardiovascular Disease | DX: R94.31 Abnormal electrocardiogram [ECG] [EKG] (principal); R11.2 Nausea with vomiting, unspecified | CPT/HCPCS: 93010 ==